=== PATIENT | male | born 1940 | race Caucasian/White ===

== ENCOUNTER 2019-07-09 14:47 | Inpatient (IN) | payer MEDICARE, OTHER ==
[~2019-07-09] VITALS: Ht 172.7 cm; Wt 73.5 kg
[2019-07-09 14:50] VITALS: BP 183/128
[2019-07-09] MEDS ORDERED: COZAAR 25 MG TA25 M1 PO (14:57)
[2019-07-09] MEDS ORDERED: LIPITOR 20 MG T20 M1 PO (14:58)
[2019-07-09] MEDS ORDERED: TERAZOSIN HCL5 MG PO (14:58)
[2019-07-09] MEDS ORDERED: GLIPIZIDE 10 MG10 MG PO (14:58)
[2019-07-09] MEDS ORDERED: ASA81BEC PO (15:00)
[2019-07-09] MEDS ORDERED: FEXOFENADINE-P1 EACH PO (15:00)
[2019-07-09 15:11] LABS: ABSOLUTE EOSINOPHILS 0.2 thou/uL (0.0-0.7); ABSOLUTE LYMPHOCYTES 1.9 thou/uL (0.8-5.3); ABSOLUTE MONOCYTES 0.5 thou/uL (0.0-1.2); ABSOLUTE NEUTROPHILS 3.2 thou/uL (1.6-8.1); BASOPHILS 0.6 %; EOSINOPHILS 3.2 %; HEMATOCRIT 29.3 % (42.0-52.0); LYMPHOCYTES 32.5 %; MCH 31.1 pg (26.0-34.0); MCHC 33.9 g/dL (28.0-37.0); MCV 91.7 fL (80.0-100.0); MONOCYTES 8.4 %; MPV 7.4 fl. (7.2-11.1); NUCLEATED RBCS 0 /100WBC; PLATELET COUNT* 199 thou/uL (150-400); POLYS 55.3 %; RDW-CV 13.4 % (10.5-14.5); WBC 5.9 thou/uL (4.0-11.0)
[2019-07-09 15:22] LABS: CALCIUM 8.2 mg/dL (8.5-10.1); CREATININE 1.7 mg/dL (0.6-1.3); POTASSIUM 4.6 mmol/L (3.5-5.1)
[2019-07-09 15:24] LABS: PROTIME 10.4 Seconds (9.20-11.50)
[2019-07-09 15:35] LABS: ALBUMIN 2.8 g/dL (3.4-5.0); CK-MB MASS 1.2 ng/mL (<0.5-3.6); MAGNESIUM 1.7 mg/dL (1.8-2.4); TOTAL BILIRUBIN 0.4 mg/dL (<0.1-1.0)
[2019-07-09 23:09] VITALS: BP 176/56
[2019-07-10] VITALS (7 sets, daily range): BP systolic 111–146; BP diastolic 47–71
[2019-07-10 07:14] LABS: ANION GAP 9 mmol/L (7-16); BUN 23 mg/dL (7-18); CALCIUM 7.3 mg/dL (8.5-10.1); CHLORIDE 109 mmol/L (98-107); CHOLESTEROL 99 mg/dL (<200); CO2 23 mmol/L (21-32); CREATININE 1.4 mg/dL (0.6-1.3); GLUCOSE 88 mg/dL (70-99); HDL CHOLESTEROL 27 mg/dL (>40); LDL CHOLESTEROL 51 mg/dL (<100); MAGNESIUM 1.5 mg/dL (1.8-2.4); POTASSIUM 4.3 mmol/L (3.5-5.1); SODIUM 141 mmol/L (136-145); TC:HDL 3.7 Ratio (Not establshd); TRIGLYCERIDE 106 mg/dL (<150); VLDL 21 mg/dL (<40)
[2019-07-10 07:15] LABS: SERUM ASSESSMENT Clear
--- NOTE | 2019-07-10 11:16 | EKG ---
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 : 1940 Requested By: Vel Chase Order Number: [id number] MD: Prieto Hamlin Measurements Intervals [place] Rate: 60 P: 17 NV: 247 QRS: -31 QRSD: 96 T: 25 QT: 395 QTc: 395 Interpretive Statements Sinus rhythm Prolonged NV interval Left axis deviation Abnormal R-wave progression, late transition No previous ECG available for comparison Electronically Signed On 07-10-2019 11:15:24 MANAGER CARE by Prieto Hamlin [email or web address] <ELECTRONICALLY SIGNED> By: Prieto Hamlin MD, FACC 07/10/19 1115 1453 1453 Prieto Hamlin MD, FAC /EPI
--- NOTE | 2019-07-10 14:36 | 2DMMODE ---
[place] [address] 2 D/M-MODE ECHOCARDIOGRAM Name: NAEEM CONTRERAS Room: [address] M.R.#: [id number] Admission: 07/09/19 Attend Phys: Ryley Villagomez, Discharge: Date of : 40 Date of Service: 07/10/19 1434 Report #: [id number] THIS REPORT FOR: cc: Serjio Alvarez Bruce R. DO Liston, Michael J. MD [facility] ~ APPROVED REPORT Study performed: 07/10/2019 09:55:41 EXAM: Comprehensive 2D, Doppler, and color-flow Echocardiogram Patient Location: In-Patient Room #: [facility] Status: routine BSA: 1.87 HR: 69 bpm BP: 117/47 mmHg Rhythm: NSR Other Information Study Quality: Good Indications Murmur 2D Dimensions IVSd: 10.79 (7-11mm) LVOT Diam: 22.79 (18-24mm) LVDd: 50.99 mm PWd: 11.53 (7-11mm) Ascending Ao: 40.06 (22-36mm) LVDs: 23.36 (25-40mm) Aortic Root: 36.81 mm Aortic Valve AoV Peak Mayo.: 3.50 m/s AO Peak Gr.: 48.94 mmHg LVOT Max P.49 mmHg AO Mean Gr.: 26.80 mmHg LVOT Mean P.04 mmHg LVOT Max V: 1.27 m/s AO V2 VTI: 61.96 cm LVOT Mean V: 0.79 m/s DAAMRIS (VTI): 1.68 cm2 LVOT V1 VTI: 25.58 cm Mitral Valve E/A Ratio: 0.74 MV Decel. Time: 309.41 ms MV E Max Mayo.: 0.86 m/[place] [address] 2 D/M-MODE ECHOCARDIOGRAM Name: NAEEM CONTRERAS Room: [address] M.R.#: [id number] Admission: 07/09/19 Attend Phys: Ryley Villagomez, Discharge: Date of : 40 Date of Service: 07/10/19 1434 Report #: [id number] MV PHT: 89.73 ms MVA (PHT): 2.45 cm2 TDI E/Lateral E': 10.75 E/Medial E': 14.33 Medial E' Mayo.: 0.06 m/s Lateral E' Mayo.: 0.08 m/s Pulmonary Valve PV Peak Mayo.: 1.24 m/s PV Peak Gr.: 6.16 mmHg Tricuspid Valve RAP Estimate: 5.00 mmHg TR Peak Gr.: 26.06 mmHg RVSP: 31.00 mmHg PA Pressure: 31.00 mmHg Left Ventricle The left ventricle is normal size. There is normal LV segmental wall motion. Mild concentric left ventricular hypertrophy. Left ventricular systolic function is normal. LVEF is 65-70%. Grade I - abnormal relaxation pattern. Right Ventricle The right ventricle is normal size. The right ventricular systolic function is normal. Atria Left atrium is mildly dilated. The right atrium size is normal. Aortic Valve The Aortic valve is sclerotic. Mild aortic regurgitation. Mild to moderate aortic stenosis. Mitral Valve The mitral valve is normal in structure. Trace mitral regurgitation. No evidence of mitral valve stenosis. Tricuspid Valve The tricuspid valve is normal in structure. Trace tricuspid regurgitation. Mild pulmonary hypertension. The RVSP is 30-35 mmHg. Pulmonic Valve The pulmonary valve is normal in structure. Mild [place] [address] 2 D/M-MODE ECHOCARDIOGRAM Name: NAEEM CONTRERAS Room: [address]#: [id number] Admission: 07/09/19 Attend Phys: Ryley Villagomez, Discharge: Date of : 40 Date of Service: 07/10/19 1434 Report #: [id number] Great Vessels The aortic root is normal in size. The ascending aorta is mildly dilated. (4.0 cm) IVC is not well visualized. Pericardium There is no pericardial effusion. <Conclusion> The left ventricle is normal size. Mild concentric left ventricular hypertrophy. Left ventricular systolic function is normal. LVEF is 65-70%. Grade I - abnormal relaxation pattern. Left atrium is mildly dilated. The Aortic valve is sclerotic. Mild aortic regurgitation. Mild to moderate aortic stenosis. Trace mitral regurgitation. Trace tricuspid regurgitation. Mild pulmonary hypertension. The RVSP is 30-35 mmHg. The ascending aorta is mildly dilated. (4.0 cm) <ELECTRONICALLY SIGNED> By: Prieto Hamlin MD, FACC 07/10/19 1434 1434 1434 Prieto Hamlin MD, FACC /INF
--- NOTE | 2019-07-10 17:46 | CARDNUC ---
[place] [address] CARDIAC NUCLEAR IMAGING REPORT Name: NAEEM CONTRERAS Room: [address] M.R.#: [id number] Admission: 07/09/19 Attend Phys: Ryley Villagomez, Discharge: Date of : 40 Date of Service: 07/10/19 1745 Report #: [id number] THIS REPORT FOR: cc: Serjio Alvarez Bruce R. DO Liston,Prieto Livingston MD [facility] ~ APPROVED REPORT Study performed: 07/10/2019 13:41:32 Exam: Nuclear Stress Test Indication: Chest pain Patient Location: In-Patient Room #: 231 Stress Tech: Rahda Yu Stress Nurse: Azucena Mcclain RN Ht: 5 ft 8 in Wt: 163 lbs BSA: 1.87 m2 BMI: 24.78 Medical History Medical History: CAD s/p stent, HTN, Diabetes Medications: losartan, atorvastatin, terazosin Allergies: ibuprophen Cardiac Risk Factors: age, htn, dm, former smoker, Previous Cardiac Procedures: PCI Exercise History: Sedentary Stress Test Details Stress Test: Pharmacologic stress testing performed using 0.4 mg of regadenoson per 5 mL given IV over 10 seconds. Reason for pharmacologic stress test: physical limitation. HR Resting HR: 72 bpm Max Heart Rate (APMHR): 142 bpm Max HR Achieved: 102 bpm Target HR (85% APMHR): 120 bpm % of APMHR: 71 Recovery HR: 75 bpm BP Resting BP: 127/71 mmHg Max BP: 184/57 [place] [address] CARDIAC NUCLEAR IMAGING REPORT Name: NAEEM CONTRERAS Room: [address]#: [id number] Admission: 07/09/19 Attend Phys: Ryley Villagomez, Discharge: Date of : 40 Date of Service: 07/10/19 1745 Report #: [id number] Resting ECG: Sinus Rhythm Stress ECG: Sinus Rhythm ST Change: None Arrhythmia: None Recovery ECG: Sinus Rhythm Recovery ST Change: None Recovery Arrhythmia: None Clinical Reason for Termination: Completed protocol Exercise duration: 0 min sec Exercise capacity: 1 METs The patient tolerated Lexiscan infusion without significant cardiac symptoms Nurse Comments 60 mg caffeine given ivp for vomiting. pt symptoms completely roesolved Stress ECG Conclusion The baseline 12-lead EKG shows sinus rhythm without significant ST segment or T wave abnormality. EKGs obtained during and post Lexiscan infusion show sinus rhythm with no significant ST segment or T-wave changes when compared to baseline. There were no stress-induced arrhythmias. NM EXAM: Myocardial Perfusion REST/STRESS Imaging Protocol: Rest Tc-99m/Stress Tc-99m 1 day Resting Data Rest SPECT myocardial perfusion imaging was performed in supine position 45 minutes following the intravenous injection of 11.8 mCi of Tc-99m Sestamibi. Time of rest injection: 11:50 The images were gated to evaluate regional wall motion and calculate left ventricular ejection fraction. Administration Route: IV Administration Site: Right Wrist Pharmacologic Stress Pharmacologic stress test was performed by injecting Regadenoson 0.4 mg IV push followed by the intravenous injection of 35.3 mCi of Tc-99m Sestamibi. Time of stress injection: 13:45 Administration Route: IV Administration Site: [place] [address] CARDIAC NUCLEAR IMAGING REPORT Name: NAEEM CONTRERAS Room: [address]#: [id number] Admission: 07/09/19 Attend Phys: Ryley Villagomez, Discharge: Date of : 40 Date of Service: 07/10/19 1745 Report #: [id number] Gated Stress SPECT was performed 40 minutes after stress injection. The images were gated to evaluate regional wall motion and calculate left ventricular ejection fraction. Prone imaging was performed. Study Quality Study: Good Artifact: Mild Diaphragmatic artifact Study Data At rest, the left ventricular ejection fraction was 72%.. Post stress, the left ventricular ejection was 79%.. TID = 1.01. Perfusion Perfusion images obtained in the supine position at rest and post Lexiscan stress show a moderate size moderate intensity defect involving the basal to mid inferior wall that resolves completely with prone imaging post stress suggesting diaphragmatic attenuation artifact. No other significant fixed or reversible defects were identified. Wall Motion Normal left ventricular wall motion. Nuclear Conclusion ECG Findings: negative for ischemia Clinical Findings: negative for ischemia Nuclear Findings: negative for ischemia Exercise Capacity: not assessed Left Ventricular Function: normal Risk Study: low Perfusion images show no defect to suggest ischemia. Left ventricular systolic function appears normal on gated studies. This is a low risk study. <Conclusion> The baseline 12-lead EKG shows sinus rhythm without significant ST segment or T wave abnormality. EKGs obtained during and post Lexiscan infusion show sinus rhythm with no significant ST segment [place] [address] CARDIAC NUCLEAR IMAGING REPORT Name: NAEEM CONTRERAS Room: [address]#: [id number] Admission: 07/09/19 Attend Phys: Ryley Villagomez, Discharge: Date of : 40 Date of Service: 07/10/191744 Report #: [id number] changes when compared to baseline. There were no stress-induced arrhythmias. <ELECTRONICALLY SIGNED> By: Prieto Hamlin MD, [facility] 07/10/19 174 44 1745 Prieto Hamlin MD, FACC /INF
[2019-07-11] VITALS: BP 130/56
[2019-07-11 02:07] LABS: GLYCOHEMOGLOBIN (HGB A1C) 8.2 % (4.8-5.6)
[2019-07-11 04:00] VITALS: BP 140/59
[2019-07-11 08:00] VITALS: BP 164/79
[2019-07-11] MEDS ORDERED: TRAMADOL 50 MG50 MG PO (09:40)
[2019-07-11] MEDS ORDERED: PROAIR HFA8.5 GM INH (09:40)
[2019-07-11] MEDS ORDERED: OMEPRAZOLE40 MG PO (09:40)
[2019-07-11 13:55] VITALS: BP 164/79
--- NOTE | 2019-07-17 09:46 | CON ---
[address] [address] CONSULTATION Name: NAEEM CONTRERAS Room: [address] [place] M.R.#: [id number] Admission: 07/11/19 Attend Phys: Ryley Villagomez MD Discharge: 07/11/19 Date of : 40 Report #: [id number] THIS REPORT FOR: //name// cc: Serjio Alvarez Bruce R. DO ~ THIS REPORT FOR: //name// CC: Serjio Villagomez INDICATION: Chest pain. HISTORY OF PRESENT ILLNESS: The patient is a 78-year-old gentleman with history of coronary artery disease with percutaneous coronary intervention approximately 10 years ago at [facility]. The patient presented to outside Cardiology office with complaints of intermittent chest discomfort described as a pressure, occurring both at rest and with exertion. There was no radiation or associated other symptoms. The patient also notes increasing dyspnea on exertion without orthopnea. EKG shows no acute ST or T-wave abnormality. Troponins are unremarkable. He has also noted some abdominal pain. He has reported some dark stools. He is mildly anemic at this time. PAST MEDICAL HISTORY: 1. Coronary artery disease. 2. Hyperlipidemia. 3. Hypertension. 4. Type 2 diabetes mellitus. 5. Supraventricular tachycardia, apparently remotely. 6. Ventricular tachycardia, apparently remotely. 7. Aortic stenosis. 8. Aortic insufficiency. 9. Chronic renal insufficiency. 10. Obstructive sleep apnea. SOCIAL HISTORY: The patient quit smoking remotely. He does not drink alcohol. FAMILY HISTORY: Noncontributory. ALLERGIES: IBUPROFEN. CURRENT MEDICATIONS: Aspirin 81 mg daily, atorvastatin 20 mg daily, glipizide 5 mg b.i.d., losartan 100 mg daily, fexofenadine ER b.i.d., terazosin 5 mg daily. REVIEW OF SYSTEMS: Positive for malaise, chest pain, dyspnea, leg swelling, [place] [address] CONSULTATION Name: NAEEM CONTRERAS [place] Room: [address]#: [id number] Admission: 07/11/19 Attend Phys: Ryley Villagomez MD Discharge: 07/11/19 Date of : 40 Report #: [id number] cough, shortness of breath, easy bruising, myalgias, intestinal bloating, abdominal pain, constipation or melena, dizziness and lightheadedness. Otherwise, 14-point review of systems was unremarkable. PHYSICAL EXAMINATION: VITAL SIGNS: Blood pressure 117/47, pulse 79 and regular. GENERAL: This is a pleasant gentleman who does not appear to be in distress. HEENT: Normocephalic, atraumatic. Extraocular muscles intact. Mucous membranes are moist. NECK: Shows no jugular venous distention. CHEST: Reveals clear lung sanders. CARDIOVASCULAR: Reveals regular rhythm with a grade 3/6 systolic ejection murmur that radiates to carotids bilaterally. ABDOMEN: Reveals protuberant abdomen, soft and mildly tender. EXTREMITIES: Shows no edema. SKIN: Dry. Peripheral pulses 2+ and easily palpable. LABORATORY DATA: Reviewed. Sodium 141, potassium 4.3, chloride 109, bicarbonate 23, BUN 23, creatinine 1.4, serum glucose 88, AST 19, lipase 286. Total bilirubin 0.4, calcium 7.3, magnesium 1.5, alkaline phosphatase 106, ALT 21, total protein 7, albumin 2.8. EGFR 49. Troponin less than 0.06 on 3 separate occasions. NT-proBNP 533. Total cholesterol 99, triglycerides 106, HDL 27, LDL 51. Coags within normal limits. White blood cell count 5.9, hemoglobin 10, MCV 91.7, platelet count 199,000. Chest x-ray shows no acute cardiopulmonary abnormality. IMPRESSION AND RECOMMENDATIONS: 1. Chest pain. The patient has a history of coronary artery disease. We will obtain stress testing to rule out occult ischemia. 2. Aortic stenosis, which is at least moderate. Repeat echocardiogram at this time. 3. Hyperlipidemia, at goal on current statin agent. 4. History of hypertension. Blood pressure adequately controlled. 5. Anemia checked. Hemoccult stools. 6. Diabetes per primary physician. 7. History of cardiac arrhythmias in the past. Telemetry monitoring shows sinus rhythm at this time. We will follow clinically. <ELECTRONICALLY SIGNED> By: Prieto Hamlin MD, FACC 07/17/19 0946 0930 1244Prieto Hamlin MD, FACC /nt
== END 2019-07-11 15:44 | disposition home or self-care (01) | DRG 391 ==
LOC: M.ERS 14:47 → M.2W 16:53 → M.TBA-ER 16:53 → M.2W 07-10 08:50
PROVIDERS: Family Medicine; ADMIT Internal Medicine
DX: K21.9 Gastro-esophageal reflux disease without esophagitis (principal); N17.0 Acute kidney failure with tubular necrosis; I25.110 Atherosclerotic heart disease of native coronary artery with unstable angina pectoris; K22.70 Barrett's esophagus without dysplasia; E78.5 Hyperlipidemia, unspecified; G47.33 Obstructive sleep apnea (adult) (pediatric); I35.0 Nonrheumatic aortic (valve) stenosis; I12.9 Hypertensive chronic kidney disease with stage 1 through stage 4 chronic kidney disease, or unspecified chronic kidney disease; E11.22 Type 2 diabetes mellitus with diabetic chronic kidney disease; N18.3 Chronic kidney disease, stage 3 (moderate); J44.9 Chronic obstructive pulmonary disease, unspecified; M19.90 Unspecified osteoarthritis, unspecified site; I27.20 Pulmonary hypertension, unspecified; Z79.899 Other long term (current) drug therapy; Z79.82 Long term (current) use of aspirin; Z79.84 Long term (current) use of oral hypoglycemic drugs; Z95.5 Presence of coronary angioplasty implant and graft; Z79.51 Long term (current) use of inhaled steroids; Z88.8 Allergy status to other drugs, medicaments and biological substances